=== PATIENT | male | born 1935 | race Caucasian/White ===

== ENCOUNTER 2016-08-05 10:25 | Inpatient (IN) | payer MEDICARE, BC ==
[~2016-08-05 10:25] MED LIST: FLOMAX0.4 MG; GLYBURIDE MICRON3 MG; LORTAB 5/500 TA1 TAB; [UNRECOGNIZED DRUG - OTHER]
[2016-08-05 10:42] LABS: CARBON DIOXIDE-VENOUS 25 mmol/L (21-33); CREATININE 1.27 mg/dl (0.67-1.17); GLUCOSE 205 mg/dl (65-120); POTASSIUM 4.7 mmol/L (3.5-5.3); SODIUM 136 mmol/L (135-146); eGFR VALUE FOR BLACK 61 mL/Min
[2016-08-05] MEDS ORDERED: MELOXICAM15 M1 PO (10:46)
[2016-08-05] MEDS ORDERED: ENALAPRIL MALE2.5 M1 PO (10:46)
[2016-08-05] MEDS ORDERED: GLIPIZIDE ER5 MG PO (10:47)
[2016-08-05] MEDS ORDERED: NORVASC2.5 M1 PO (10:47)
[2016-08-05] MEDS ORDERED: SERTRALINE HCL50 M4 PO (10:47)
[2016-08-05] MEDS ORDERED: ZENPEP DR 10,01 EACH PO (10:47)
[2016-08-05] MEDS ORDERED: PROTONIX40 M2 PO (10:48)
[2016-08-05] MEDS ORDERED: FLOMAX0.4 M1 PO (10:48)
[2016-08-05] MEDS ORDERED: NITROSTAT0.4 MG/TAB SL (10:48)
[2016-08-05 10:49] LABS: INR 0.9 INR (0.9-1.1); PROTHROMBIN TIME 10.5 SECONDS (9.0-13.6)
[2016-08-05 10:51] LABS: BASO % 0.4 % (0-2); EOS % 4.9 % (0-7); EOSINOPHIL ABSOLUTE COUNT 0.4 tho/cmm (0.0-0.7); HCT-HEMATOCRIT 34.5 % (36.0-53.5); HGB-HEMOGLOBIN 11.5 gm/dl (13.5-17.0); IMMATURE GRANULOCYTES ABSOLUTE 0.01 tho/cmm (0-0.03); IMMATURE GRANULOCYTES PERCENT 0.1 % (0-0.3); LYMPH % 23.7 % (20-45); LYMPH ABSOLUTE COUNT 1.8 tho/cmm (0.8-4.5); MCHC MEAN CORPUSCULAR HGB CONC 33.3 % (32.0-36.0); MCV (MEAN CELL VOLUME) 96.1 fl (82.0-96.0); MEAN PLATELET VOLUME 10.1 cmc (9.4-12.4); MONO % 7.2 % (0-12); MONOCYTE ABSOLUTE COUNT 0.5 tho/cmm (0.0-1.2); NEUTROPHIL ABSOLUTE COUNT 4.8 tho/cmm (1.6-8.0); NEUTROPHIL-AUTOMATED 4.8 tho/cmm (1.6-8.0); NEUTROPHILS % 63.7 % (40-80); PLATELET COUNT 255 tho/cmm (150-450); RED BLOOD COUNT 3.59 mil/cmm (4.40-5.70); RED CELL DISTRIBUTION WIDTH 13.1 % (12.4-16.4); WHITE BLOOD COUNT 7.5 tho/cmm (4.0-10.0)
[2016-08-05] MEDS ORDERED: ZOCOR10 M1 PO (11:09)
[2016-08-05] MEDS ORDERED: COLACE100 M1 PO (11:09)
[2016-08-05] MEDS ORDERED: ASPIRIN EC81 MG PO (11:09)
[2016-08-05] MEDS ORDERED: PROBIOTIC1 EA10 PO (11:10)
[2016-08-05 11:24] LABS: ANION GAP 9 mmol/L (0-20); CHLORIDE 107 mmol/l (96-110)
[2016-08-05 11:25] LABS: ALB/GLOB RATIO 0.8 (0.8-2.0); ALKALINE PHOSPHATASE 120 U/L (33-138); ALT/SGPT 23 U/L (12-78); AST/SGOT 23 U/L (10-40); BILIRUBIN,TOTAL 0.2 mg/dl (0.0-1.5); BLOOD UREA NITROGEN 24 mg/dl (6-24)
[2016-08-06 06:33] LABS: BASO % 0.7 % (0-2); BASO ABSOLUTE COUNT 0.1 tho/cmm (0.0-0.2); EOS % 5.3 % (0-7); EOSINOPHIL ABSOLUTE COUNT 0.4 tho/cmm (0.0-0.7); HCT-HEMATOCRIT 33.4 % (36.0-53.5); IMMATURE GRANULOCYTES ABSOLUTE 0.01 tho/cmm (0-0.03); IMMATURE GRANULOCYTES PERCENT 0.1 % (0-0.3); LYMPH % 26.5 % (20-45); MCH (MEAN CORPUSCULAR HGB) 31.5 pg (28.0-32.0); MCHC MEAN CORPUSCULAR HGB CONC 32.9 % (32.0-36.0); MCV (MEAN CELL VOLUME) 95.7 fl (82.0-96.0); MEAN PLATELET VOLUME 10.1 cmc (9.4-12.4); MONO % 7.2 % (0-12); MONOCYTE ABSOLUTE COUNT 0.5 tho/cmm (0.0-1.2); NEUTROPHIL ABSOLUTE COUNT 4.5 tho/cmm (1.6-8.0); NEUTROPHIL-AUTOMATED 4.5 tho/cmm (1.6-8.0); NEUTROPHILS % 60.2 % (40-80); PLATELET COUNT 260 tho/cmm (150-450); RED BLOOD COUNT 3.49 mil/cmm (4.40-5.70); RED CELL DISTRIBUTION WIDTH 13.2 % (12.4-16.4); WHITE BLOOD COUNT 7.4 tho/cmm (4.0-10.0)
[2016-08-06 06:52] LABS: ANION GAP 10 mmol/L (0-20); BLOOD UREA NITROGEN 21 mg/dl (6-24); CALCIUM 8.1 mg/dl (8.5-10.5); CARBON DIOXIDE-VENOUS 27 mmol/L (22-32); CHLORIDE 111 mmol/l (96-110); CHOLESTEROL 133 mg/dl (120-200); CREATININE 1.27 mg/dl (0.60-1.30); HDL CHOLESTEROL 40 mg/dl (40-60); LDL CHOLESTEROL 55 mg/dl (0-99); POTASSIUM 4.8 mmol/L (3.7-5.1); SODIUM 143 mmol/L (135-145); VLDL 39 mg/dl (0-30); eGFR VALUE FOR BLACK 61 mL/Min
[2016-08-06 06:57] LABS: GLUCOSE 74 mg/dL (70-110); TRIGLYCERIDES 193 mg/dl (<149)
[2016-08-06 12:24] LABS: TSH-THYROID STIMULATING HORM. 5.89 uIU/ml (0.40-3.80)
[2016-08-07 05:56] LABS: HGB-HEMOGLOBIN 10.7 gm/dl (13.5-17.0); PLATELET COUNT 238 tho/cmm (150-450)
[2016-08-07] MEDS ORDERED: ASPIRIN325 M3 PO (14:01)
[2016-08-07] MEDS ORDERED: VITAMIN B-121000 MC1 PO (14:05)
[2016-08-07] MEDS ORDERED: METFORMIN HCL500 M2 PO (14:09)
== END 2016-08-07 16:45 | DRG 69 ==
LOC: EDMED 10:25 → EMR2 12:54 → 5EB 17:45
PROVIDERS: Emergency Medicine; Internal Medicine; Psychiatry & Neurology Neurology; ADMIT Family Medicine
DX: G45.9 Transient cerebral ischemic attack, unspecified (principal); I10 Essential (primary) hypertension; E55.9 Vitamin D deficiency, unspecified; E78.5 Hyperlipidemia, unspecified; N40.0 Benign prostatic hyperplasia without lower urinary tract symptoms; K21.9 Gastro-esophageal reflux disease without esophagitis; I25.10 Atherosclerotic heart disease of native coronary artery without angina pectoris; H35.30 Unspecified macular degeneration; E03.9 Hypothyroidism, unspecified; Z79.4 Long term (current) use of insulin
CPT/HCPCS: A9577; G8987-GO-CH; G8988-GO-CH; G8989-GO-CH; J1650; J3420; J7030